=== PATIENT | female | born 1970 | race Caucasian/White ===

== ENCOUNTER 2017-07-07 21:17 | Inpatient (IN) | payer OTHER ==
[2017-07-07 21:56] VITALS: BMI 45.3
--- NOTE | 2017-07-07 22:14 | PDOC ---
Attending Attestation - Resident Resident Name: EstuardoGiulia - ED Attending Attestation I have performed the following: I have examined & evaluated the patient, The case was reviewed & discussed with the resident, I agree w/resident's findings & plan, Exceptions are as noted - HPI HPI: 07/07/17 22:08 46-year-old female with past mental history of obesity and diabetes presents with right knee and right ankle pain status post mechanical fall. Patient tripped and fell and landed on her right knee and twisted her right ankle. Complaining of bilateral malleolus and anterior knee pain. Patient unable and bili. Denies numbness or weakness. Came to the ED for further management. - Physicial Exam PE: 07/07/17 22:11 GENERAL: Awake, alert, and fully oriented, in no acute distress. HEAD: No signs of trauma EYES: PERRLA, EOMI, sclera anicteric, conjunctiva clear ENT: Auricles normal inspection, hearing grossly normal, nares patent, oropharynx clear without exudates. EXTREMITIES: Normal range of motion, no edema. No clubbing or cyanosis. No cords, erythema, or tenderness RLE: 2+ DP pulse. Sensation intact throughout. TTP Right prox tib but no stepoffs. No lateral or medial knee tenderness to palpation. Mild edema and TTP medial and lateral malleolus. No joint instability appreciated. NEUROLOGICAL: Cranial nerves II through XII grossly intact. Normal speech, normal gait SKIN: Warm, Dry, normal turgor, no rashes or lesions noted. - Medical Decision Making 07/07/17 22:14 Vital Signs Temp Pulse Resp BP Pulse Ox 98.0 F 95 H 14 156/81 98 07/07/17 21:34 07/07/17 21:34 07/07/17 21:34 07/07/17 21:34 07/07/17 21:34 Will r/o R knee, tib, ankle fracture. Neurovascularly intact. Xrays and reassess.
--- NOTE | 2017-07-08 01:19 | PDOC ---
History of Present Illness - General Chief Complaint: Pain, Acute Stated Complaint: FALL Time Seen by Provider: 07/07/17 21:29 - History of Present Illness Initial Comments: 07/08/17 01:50 Patient is a 26-year-old female with past medical history of insulin dependent diabetes who presents to the emergency department today complaining of right leg pain after falling this afternoon. Patient states that she was walking across the street when she tripped on uneven pavement and fell hitting her knee on the pavement. She states that she was unable to get up as it hurt very much. She went to urgent care for evaluation but their x-ray machine was down. They recommended coming to the emergency department for x-rays. Patient states that her pain is currently an 8 out of 10 and it hurts to bear weight. She states that she cannot walk on her own but she is requiring assistance. Denies numbness and tingling of the foot as well as weakness. Denies LOC, head trauma, neck pain, back pain, urinary/bowel incontinence. Past History - Travel Traveled outside of the country in the last 30 days: No Close contact w/someone who was outside of country & ill: No - Past Medical History Allergies/Adverse Reactions: Allergies Allergy/AdvReac Type Severity Reaction Status Date / Time amoxicillin Allergy Verified 07/07/17 21:33 Penicillins Allergy Verified 07/07/17 21:33 Home Medications: Ambulatory Orders Albuterol Sulfate Inhaler - [Ventolin Hfa Inhaler -] 1 puff IH PRN PRN 07/08/17 Alogliptin Benzoate [Alogliptin] 25 mg PO DAILY 07/08/17 Canagliflozin [Invokana] 300 mg PO DAILY 07/08/17 Dulaglutide [Trulicity] 0.75 mg SQ WEEKLY 07/08/17 Fluticasone Prop 0.05% Nasal [Flonase -] 1 - 2 spray NS DAILY 07/08/17 Glyburide 10 mg PO BID 07/08/17 Insulin Degludec [Tresiba Flextouch U-100] 100 unit SQ DAILY 07/08/17 Levothyroxine [Synthroid -] 75 mcg PO DAILY 07/08/17 Losartan Potassium 100 mg PO DAILY 07/08/17 - Psycho/Social/Smoking Cessation Hx Suicidal Ideation: No Smoking History: Never smoked Have you smoked in the past 12 months: No Information on smoking cessation initiated: No Hx Alcohol Use: No Drug/Substance Use Hx: No Review of Systems - Review of Systems Constitutional: No: Chills, Fever, Malaise, Weakness Neurological: Yes: Unsteady Gait (unable to bear weight on r leg). No: Numbness , Paresthesia, Weakness, Dizziness *Physical Exam - Vital Signs Last Vital Signs Temp Pulse Resp BP Pulse Ox 98.0 F 95 H 14 156/81 98 07/07/17 21:34 07/07/17 21:34 07/07/17 21:34 07/07/17 21:34 07/07/17 21:34 - Physical Exam Comments: 07/08/17 01:53 GENERAL: Well developed, well nourished. AAOX3. Mild distress, unable to walk d/t pain HEENT: Normocephalic, atraumatic. PERRLA, EOMI. No conjunctival pallor. Sclera are non- icteric. Moist mucous membranes. Oropharynx is clear. NECK: Supple. Full ROM. No JVD. Carotid pulses 2+ and symmetric, without bruits. No thyromegaly. No lymphadenopathy. CARDIOVASCULAR: Regular rate and rhythm. No murmurs, rubs, or gallops. Distal pulses are 2+ and symmetric. PULMONARY: No evidence of respiratory distress. Lungs clear to auscultation bilaterally. No wheezing, rales or rhonchi. ABDOMINAL: Soft. Non-tender. Non-distended. No rebound or guarding. No organomegaly. Normoactive bowel sounds. MUSCULOSKELETAL R knee is swollen medially and laterally. (-) anterior/posterior draw test. TTP of the tibial tuberosity. ROM decreased, pt refuses to flex or extend her leg d/ t pain. Ankle is also grossly swolled medially and laterally with TTP of the medial/lateral malleoulus as well as the navicular bone. ROM intact, Pain with dorsiflexion. Normal range of motion at all other joints. No bony deformities or tenderness. No CVA tenderness. EXTREMITIES: No cyanosis. No clubbing. No edema. No calf tenderness. SKIN: Warm and dry. Normal capillary refill. No rashes. No jaundice. NEUROLOGICAL: Alert, awake, appropriate. Cranial nerves 2-12 intact. No deficits to light touch and temperature in face, upper extremities and lower extremities. No motor deficits in the in face, upper extremities and lower extremities. Normoreflexic in the upper and lower extremities. Normal speech. Toes are down- going bilaterally. Gait is normal without ataxia. PSYCHIATRIC: Cooperative. Good eye contact. Appropriate mood and affect. ED Treatment Course - LABORATORY CBC & Chemistry Diagram: 07/08/17 03:45 07/08/17 03:45 - ADDITIONAL ORDERS Additional order review: Laboratory Results 07/07/17 22:49 Urine HCG, Qual Negative - RADIOLOGY Radiology Studies Ordered: Category Date Time Status ANKLE & FOOT-RIGHT* [RAD] Stat Radiology 07/07/17 21:46 Taken KNEE 2 POS-RIGHT [RAD] Stat Radiology 07/07/17 21:46 Taken LEG TIB/FIB-RIGHT [RAD] Stat Radiology 07/07/17 21:46 Taken - Medications Given in the ED: ED Medications Discontinued Medications Generic Name Dose Route Start Last Admin Trade Name Freq PRN Reason Stop Dose Admin Oxycodone/Acetaminophen 1 combo 07/07/17 21:47 07/07/17 22:55 Percocet 5/325 - PO 07/07/17 21:48 1 combo ONCE ONE Administration Medical Decision Making - Medical Decision Making 07/08/17 00:59 Patient is a 46-year-old female with past medical history of insulin-dependent diabetes who presents to the emergency department today complaining of right leg pain. Patient's pain is out of proportion to the degree of swelling. We will obtain x-rays of the right leg to rule out fracture. We will also medicate for pain. 1.x-ray of right knee, right tib-fib, right ankle/foot 2. Percocet for pain management 3.reevaluate 07/08/17 01:10 X-rays: impressions as by carleen Possible occult fracture involving the knee as suggested by hemarthrosis. Consider follow-up with CT. Osteoarthritis of the knee and foot. Nonspecific soft tissue edema involving the right ankle and calf regions. Given results of x-ray, will order CT of the lower extremity at this time. Patient stated she had used the bathroom. She was unable to walk in the emergency department or put weight on the foot due to the pain. Will order another dose of Percocet at this time. 07/08/17 02:49 CT impression: Avulsion fracture of the posterior tibial plateau. Possible PCL involvement. 07/08/17 03:[address] findings and the patient is unable to ambulate will admit to the hospital at this time. Patient's primary care doctor is Dr. Zeynep Mcfadden who does not admit to this hospital. Will consult [facility] at this time. Will put in consult for Dr. Dumas. 07/08/17 03:25 Pt. admitted to [facility]. *DC/Admit/Observation/Transfer Diagnosis at time of Disposition: Avulsion fracture, Unable to ambulate - Discharge Dispostion Condition at time of disposition: Stable Admit: Yes - Referrals Referrals: Flower Mcfadden MD [Primary Care Provider] -
[2017-07-08 03:51] LABS: BASOPHIL 0.6 % (0-2.0); EOSINOPHIL 2.3 % (0-4.5); MCH 29.8 pg (25.7-33.7); MCHC 33.5 g/dl (32.0-36.0); MEAN CELL VOLUME 88.8 fl (80-96); MEAN PLT VOLUME 8.4 fl (7.5-11.1); NEUTROPHILS 68.4 % (42.8-82.8); PLATELET COUNT 243 K/MM3 (134-434); RDW 14.1 % (11.6-15.6); WHITE BLOOD COUNT 8.2 K/mm3 (4.0-10.0)
--- NOTE | 2017-07-08 03:58 | HP ---
CHIEF COMPLAINT: PCP: HISTORY OF PRESENT ILLNESS: 46 yo F with PMhx of obesity,hypothyroidism and diabetes presents with right knee and right ankle pain status post mechanical fall. Patient tripped and fell and landed on her right knee and twisted her right ankle.No head trauma or LOC. She went to urgent care initially and did not have imaging done. Subsequently went home and was unable to bare weight. Called EMS and brought to ER. Complaining of 10/10 constant non radiating right ankle and anterior knee pain. Patient unable ambulate. Denies numbness or weakness.Denies CP, LEROY,palpitations , abd. pain, N/V. ER course was notable for: (1)XRAYs of leg an foot did not show fracture (2)Ct of LE showed avulsion fracture of the posterior tibial plateau, with possible PCL involvement. (3) Recent Travel:denies PAST MEDICAL HISTORY:obesity,hypothyroidism, endometriosis and diabetes PAST SURGICAL HISTORY: laproscopic Social History: Smoking:never Alcohol:socially Drugs: denies Family History: Father- DM, HTN, HLD, CAD Allergies amoxicillin Allergy (Verified 07/07/17 21:33) Penicillins Allergy (Verified 07/07/17 21:33) HOME MEDICATIONS: REVIEW OF SYSTEMS CONSTITUTIONAL: Absent: fever, chills, diaphoresis, generalized weakness, malaise, loss of appetite, weight change HEENT: Absent: rhinorrhea, nasal congestion, throat pain, throat swelling, difficulty swallowing, mouth swelling, ear pain, eye pain, visual changes CARDIOVASCULAR: Absent: chest pain, syncope, palpitations, irregular heart rate, lightheadedness , peripheral edema RESPIRATORY: Absent: cough, shortness of breath, dyspnea with exertion, orthopnea, wheezing, stridor, hemoptysis GASTROINTESTINAL: Absent: abdominal pain, abdominal distension, nausea, vomiting, diarrhea, constipation, melena, hematochezia GENITOURINARY: Absent: dysuria, frequency, urgency, hesitancy, hematuria, flank pain, genital pain MUSCULOSKELETAL: right knee and ankle pain Absent: myalgia, arthralgia, joint swelling, back pain, neck pain SKIN: Absent: rash, itching, pallor HEMATOLOGIC/IMMUNOLOGIC: Absent: easy bleeding, easy bruising, lymphadenopathy, frequent infections ENDOCRINE: Absent: unexplained weight gain, unexplained weight loss, heat intolerance, cold intolerance NEUROLOGIC: Absent: headache, focal weakness or paresthesias, dizziness, unsteady gait, seizure, mental status changes, bladder or bowel incontinence PSYCHIATRIC: Absent: anxiety, depression, suicidal or homicidal ideation, hallucinations. PHYSICAL EXAMINATION Vital Signs - 24 hr 07/07/17 21:34 Temperature 98.0 F Pulse Rate 95 H Respiratory 14 Rate Blood Pressure 156/81 O2 Sat by Pulse 98 Oximetry (%) GENERAL: AAOx3 , mild distress. HEAD: NC/AT. EYES: PERRLA ,EOMI, sclera anicteric, conjunctiva clear. No lid lag. EARS, NOSE, THROAT: Moist mucous membranes. NECK: thick, supple, no jvd. LUNGS: CTAB. No wheezes, and no crackles. No accessory muscle use. HEART: RRR, normal S1 and S2 , no m/g/r ABDOMEN: Soft, obese, nontender, not distended, normoactive bowel sounds, no guarding, no rebound, no masses. No hepatomegaly or splenomegaly. MUSCULOSKELETAL: No bony deformities or tenderness. No CVA tenderness. UPPER EXTREMITIES: 2+ pulses, warm, well-perfused. No cyanosis. No clubbing. No peripheral edema. LOWER EXTREMITIES: 2+ DP pulses,R knee is swollen medially and laterally. (-) anterior/posterior draw test. TTP of the tibial tuberosity. Decreased ROM 2/2 pain. warm, well-perfused. No calf tenderness. 1+ peripheral edema. Neurovascularly intact. NEUROLOGICAL: Cranial nerves II-XII intact. Normal speech. gait not observed. PSYCHIATRIC: Cooperative. Good eye contact. Appropriate mood and affect. SKIN: Warm, dry, normal turgor, no rashes or lesions noted, normal capillary refill. Laboratory Results - last 24 hr 07/07/17 22:49 Urine HCG, Qual Negative ASSESSMENT/PLAN: 46 yo F with PMhx of obesity,hypothyroidism and diabetes admitted to med-surg for further management of avulsion fracture of the posterior tibial plateau, with possible PCL involvement. Problem List - Problem (1) Avulsion fracture Assessment/Plan: * CT of lower ext shows avulsion fracture of the posterior tibial plateau, with possible PCL involvement. * Will consult Dr. Alesia root * Will admit to med-surg * NPO for now * Pain control with Roxicodone 5mg PO Q4hr * IVF with NS @100 ml/hr. (2) Diabetes type 2, controlled Assessment/Plan: * NPO for now but ADA diet once cleared by ortho * BGM ACHS * NISS ACHS (3) Hypothyroidism (acquired) Assessment/Plan: * Continue Levothyroxin. Visit type - Emergency Visit Emergency Visit: Yes Care time: The patient presented to the Emergency Department on the above date and was hospitalized for further evaluation of their emergent condition. - New Patient This patient is new to me today: Yes Date on this admission: 07/08/17 - Critical Care Critical Care patient: No
[2017-07-08] MEDS ORDERED: SODIUM CHLORIDE 1,000 ML IV SCH (04:00)
[2017-07-08 04:21] LABS: INR 1.03 (0.82-1.09); PROTHROMBIN TIME (PATIENT) 11.3 SEC (9.98-11.88)
[2017-07-08 04:24] LABS: ACTIVATED PTT 35.1 SECONDS (26.9-34.4)
[2017-07-08 04:29] LABS: ALBUMIN 2.6 g/dl (3.4-5.0); ANION GAP 9 (8-16); BILIRUBIN,TOTAL 0.3 mg/dL (0.2-1.0); CALCIUM 8.6 mg/dL (8.5-10.1); CO2 27 mmol/L (21-32); CREATININE 0.8 mg/dL (0.55-1.02); SGOT/AST 11 U/L (15-37); SGPT/ALT 27 U/L (12-78); TOT PROT 6.3 g/dl (6.4-8.2)
[2017-07-08 04:30] LABS: ALK PHOS 77 U/L (45-117)
[2017-07-08 04:31] LABS: GLUCOSE,RANDOM 347 mg/dL (74-106)
[2017-07-08] MEDS ORDERED: INSULIN REGULAR HUMAN 100 UNITS/ML *VIAL IVPUSH ONE (04:42)
--- NOTE | 2017-07-08 06:27 | PN ---
Teaching Attending Note Name of Resident: Emmett Byrd ATTENDING PHYSICIAN STATEMENT I saw and evaluated the patient. I reviewed the resident's note and discussed the case with the resident. I agree with the resident's findings and plan as documented. SUBJECTIVE: 46 year old female s/p mechanical fall and trauma to her right LE resulting in 10/10 pain and inability to ambulate. ED workup revealed avulsiono fx of the posterior tibial plataeu with possible PLC involvement . Recent Travel:denies PAST MEDICAL HISTORY: obesity hypothyroidism, endometriosis diabetes Social History: Smoking:never Alcohol:socially Drugs: denies Family History: Father- DM, HTN, HLD, CAD Allergies amoxicillin Allergy (Verified 07/07/17 21:33) Penicillins Allergy (Verified 07/07/17 21:33) OBJECTIVE: Vital Signs Temperature 98.1 F 07/08/17 05:39 Pulse Rate 84 07/08/17 05:39 Respiratory Rate 20 07/08/17 05:39 Blood Pressure 115/64 07/08/17 05:39 O2 Sat by Pulse Oximetry (%) 98 07/08/17 05:01 HEART: RRR, normal S1 and S2 , no m/g/r ABDOMEN: Soft, obese, nontender, not distended, normoactive bowel sounds, no guarding, no rebound, no masses. No hepatomegaly or splenomegaly. MUSCULOSKELETAL: No bony deformities or tenderness. No CVA tenderness. UPPER EXTREMITIES: 2+ pulses, warm, well-perfused. No cyanosis. No clubbing. No peripheral edema. LOWER EXTREMITIES: 2+ DP pulses,R knee is swollen medially and laterally. Decreased ROM 2/2 pain. warm, well-perfused. No calf tenderness. 1+ peripheral edema. Neurovascularly intact CBC, BMP 07/08/17 03:45 07/08/17 03:45 ASSESSMENT AND PLAN: 1. Posterior tibial plateau fracture of RLE - acute, post traumatic - NPO - Ortho eval / possible surgical interventio - pain control -IVF 2. Uncontrolled DM - non compliant with diet - hole oral antihyperglycemics - insulin basal and sliding scale 3. DVT PPX - heparin SC
[2017-07-08] MEDS: HEPARIN NA (PORCINE) 5,000 UNITS/ML 1ML VIAL SQ SCH ×3 (06:34→21:09)
[2017-07-08 07:20] LABS: MAGNESIUM 1.9 mg/dL (1.8-2.4); PHOSPHOROUS 4.1 mg/dL (2.5-4.9)
[2017-07-08] MEDS: LEVOTHYROXINE NA 75 MCG TABLET (FP) PO SCH (07:34)
[2017-07-08] MEDS: LOSARTAN POTASSIUM 50 MG TABLET (FP) PO SCH (09:34)
[2017-07-08] MEDS: oxyCODONE HCL 5 MG TABLET PO PRN (11:54)
--- NOTE | 2017-07-08 15:15 | PN ---
Physical Exam: SUBJECTIVE: Patient seen and examined. Pain in right leg is controlled. OBJECTIVE: Vital Signs Period Temp Pulse Resp BP Sys/Mackenzie Pulse Ox Last 24 Hr 98.1 F-98.8 F 83-88 18-20 115-141/64-89 98 GENERAL: The patient is awake, alert, and fully oriented, in no acute distress. LUNGS: Breath sounds equal, clear to auscultation bilaterally, no wheezes, no crackles, no accessory muscle use. HEART: Regular rate and rhythm, S1, S2 without murmur, rub or gallop. ABDOMEN: Obese, soft, nontender, nondistended, normoactive bowel sounds, no guarding, no rebound, no hepatosplenomegaly, no masses. EXTREMITIES: 2+ pulses, warm, well-perfused, no edema. Abrasions right knee. Laboratory Results - last 24 hr 07/08/17 07/08/17 05:58 07:00 POC Glucometer 182 Phosphorus 4.1 Magnesium 1.9 Active Medications Generic Name Dose Route Start Last Admin Trade Name Freq PRN Reason Stop Dose Admin Heparin Sodium (Porcine) 5,000 unit 07/08/17 06:00 07/08/17 13:43 Heparin - SQ 5,000 unit TID RAJIV Administration Sodium Chloride 1,000 mls @ 83 mls/hr 07/08/17 04:00 07/08/17 04:11 Normal Saline - IV 83 mls/hr ASDIR RAJIV Administration Levothyroxine Sodium 75 mcg 07/08/17 07:00 07/08/17 07:34 Synthroid - PO 75 mcg DAILY@0700 RAJIV Administration Losartan Potassium 100 mg 07/08/17 10:00 07/08/17 09:34 Cozaar - PO 100 mg DAILY RAJIV Administration Oxycodone HCl 5 mg 07/08/17 03:46 07/08/17 11:54 Roxicodone - PO 5 mg Q4H PRN Administration PAIN ASSESSMENT/PLAN: This is a 46 year old woman with a history of obesity, hypothyroidism, type 2 DM who presented to the ER with right knee and right ankle pain after a fall. 1. Right posterior tibial plateau fracture - Continue oxycodone as needed for pain - Awaiting orthopedic surgery evaluation 2. Type 2 diabetes mellitus - Fingersticks with Novolog sliding scale 3. Hypothyroidism - Continue Synthroid 4. Hypertension - Continue Cozaar Visit type - Emergency Visit Emergency Visit: Yes ED Registration Date: 07/08/17 Care time: The patient presented to the Emergency Department on the above date and was hospitalized for further evaluation of their emergent condition. - New Patient This patient is new to me today: Yes Date on this admission: 07/08/17 - Critical Care Critical Care patient: No - Discharge Referral Referred to [facility] Med [facility].: No
[2017-07-08] MEDS: INSULIN SLIDING SCALE (NOVOLOG) 1 VIAL SQ SCH ×2 (17:21→21:10)
[2017-07-08] MEDS ORDERED: INSULIN (NOVOLOG) ASPART 100 UNITS/ML 10ML VIAL ONE (20:39)
[2017-07-09] MEDS: oxyCODONE HCL 5 MG TABLET PO PRN ×2 (06:09→12:54)
[2017-07-09] MEDS: INSULIN SLIDING SCALE (NOVOLOG) 1 VIAL SQ SCH ×3 (06:10→17:35)
[2017-07-09] MEDS: HEPARIN NA (PORCINE) 5,000 UNITS/ML 1ML VIAL SQ SCH ×2 (06:10→14:17)
[2017-07-09] MEDS: LEVOTHYROXINE NA 75 MCG TABLET (FP) PO SCH (06:11)
--- NOTE | 2017-07-09 08:55 | CON.ORTH ---
Consult Reason for Consultation:: right knee, right ankle pain - Alcohol/Substance Use Hx Alcohol Use: No - Smoking History Smoking history: Never smoked Have you smoked in the past 12 months: No Home Medications - Allergies Allergies/Adverse Reactions: Allergies Allergy/AdvReac Type Severity Reaction Status Date / Time amoxicillin Allergy Verified 07/07/17 21:33 Penicillins Allergy Verified 07/07/17 21:33 - Home Medications Home Medications: Ambulatory Orders Albuterol Sulfate Inhaler - [Ventolin Hfa Inhaler -] 1 puff IH PRN PRN 07/08/17 Alogliptin Benzoate [Alogliptin] 25 mg PO DAILY 07/08/17 Canagliflozin [Invokana] 300 mg PO DAILY 07/08/17 Dulaglutide [Trulicity] 0.75 mg SQ WEEKLY 07/08/17 Fluticasone Prop 0.05% Nasal [Flonase -] 1 - 2 spray NS DAILY 07/08/17 Glyburide 10 mg PO BID 07/08/17 Insulin Degludec [Tresiba Flextouch U-100] 100 unit SQ DAILY 07/08/17 Levothyroxine [Synthroid -] 75 mcg PO DAILY 07/08/17 Losartan Potassium 100 mg PO DAILY 07/08/17 Physical Exam for Ortho Vital Signs: Vital Signs Temperature 98.9 F 07/09/17 05:01 Pulse Rate 85 07/09/17 05:01 Respiratory Rate 20 07/09/17 05:01 Blood Pressure 131/72 07/09/17 05:01 O2 Sat by Pulse Oximetry (%) 96 07/08/17 21:00 Labs: INR, PTT INR 1.03 (0.82-1.09) 07/08/17 03:45 - Lower Extremity Knee: Yes: Right, Abrasion, Limited ROM, Pain, Swelling, Tenderness, Other ( able to SLR, nvi) Ankle: Yes: Right, Pain, Swelling, Tenderness, Other (good rom, nvi) Imaging - Results X-ray: Report Reviewed, Image Reviewed Cat Scan: Report Reviewed, Image Reviewed Assessment/Plan 46 yo F with PMhx of obesity,hypothyroidism and diabetes presents with right knee and right ankle pain status post mechanical fall. Patient tripped and fell and landed on her right knee and twisted her right ankle.No head trauma or LOC. She went to urgent care initially and did not have imaging done. Subsequently went home and was unable to bare weight. Called EMS and brought to ER. Complaining of 10/10 constant non radiating right ankle and anterior knee pain. Patient has been unable ambulate. Denies numbness or weakness. States right knee is worse than ankle. a/p 1) Right posterior tibial plateau fx- nondisplaced 2) right ankle sprain knee immobilizer for right knee- only for weight bearing, may remove and perform ROM exercises in bed PWB with knee immobilizer and crutches/walker PT eval ice, elevate will follow d/w Dr. Dumas
[2017-07-09] MEDS: LOSARTAN POTASSIUM 50 MG TABLET (FP) PO SCH (09:58)
[2017-07-09] MEDS ORDERED: INSULIN (NOVOLOG) ASPART 100 UNITS/ML 10ML VIAL ONE (12:10)
[2017-07-09 13:58] VITALS: BP 122/68; PULSE 93; TEMP 98.1
--- NOTE | 2017-07-09 16:00 | DS ---
Physical Exam: SUBJECTIVE: Patient seen and examined. Offers no new complaints today. OBJECTIVE: Vital Signs Period Temp Pulse Resp BP Sys/Mackenzie Pulse Ox Last 24 Hr 97.8 F-98.9 F 85-93 19-20 112-131/66-76 96 PHYSICAL EXAM GENERAL: The patient is awake, alert, and fully oriented, in no acute distress. HEAD: Normal with no signs of trauma. EYES: PERRL, extraocular movements intact, sclera anicteric, conjunctiva clear. ENT: Ears normal, nares patent, oropharynx clear without exudates, moist mucous membranes. NECK: Trachea midline, full range of motion, supple. LUNGS: Breath sounds equal, clear to auscultation bilaterally, no wheezes, no crackles, no accessory muscle use. HEART: Regular rate and rhythm, S1, S2 without murmur, rub or gallop. ABDOMEN: Soft, nontender, nondistended, normoactive bowel sounds, no guarding, no rebound, no hepatosplenomegaly, no masses. EXTREMITIES: 2+ pulses, warm, well-perfused, no edema. Tenderness to palpation and Restricted ROM on RLE (1/5). PSYCH: Normal mood, normal affect. SKIN: Warm, dry, normal turgor, no rashes or lesions noted. LABS Laboratory Results - last 24 hr 07/08/17 07/08/17 07/09/17 17:00 21:07 06:06 POC Glucometer 293 295 307 07/09/17 11:43 POC Glucometer 319 HOSPITAL COURSE: Date of Admission:07/08/17 Date of Discharge: 07/09/17 46-year-old female with past mental history of obesity and diabetes presented to the ED with right knee and right ankle pain status post mechanical fall and was found to have a Right posterior tibial fracture and a right ankle sprain. Patient was placed on a knee immobilizer which may be removed while performing ROM exercises. Follow-up with Dr. Dumas is recommended in 1-2 weeks for further management. Patient was prescribed oxycodone 5mg PRN for 10 days. Hospital course was complicated by hyperglycemia and Hypertension which were controlled with insulin and Cozaar throughout hospital course. Patient was sent home with visiting nurse service and home physical therapy coordinated. Minutes to complete discharge: 45 Discharge Summary Reason For Visit: UNABLE TO ABMULACE, EVALUEATE FRAGURE Current Active Problems Avulsion fracture (Acute) Diabetes type 2, controlled (Acute) Hypothyroidism (acquired) (Acute) Unable to ambulate (Acute) Condition: Stable - Instructions Diet, Activity, Other Instructions: Follow up with your primary care doctor- Dr. Mcfadden. Imaging revealed fracture of the right tibia. You also have a right ankle sprain. You must use knee immobilizer for your right leg and you may remove it while doing range of motion exercises. While you walk or ambulate, you must use a walker or crutches and must keep knee immobilizer on while you walk or ambulate. You cannot bear weight on your right leg without an assistive device and your knee immobilizer. You will follow up with Dr. Dumas an orthopedic surgeon in 1 week for further management of your fracture and ankle sprain. Oxycodone has been prescribed to your pharmacy for pain control. You may take 1 pill every 6 hours if needed for pain control. No changes have been made to your home medications. If you develop any fevers, lower leg swelling and redness, short of breath and chest pain, come back to the emergency room. Referrals: Fadi Dumas MD [Staff Physician] - 1 Week Flower Mcfadden MD [Primary Care Provider] - Disposition: [facility]NS/HOME HEALTH CARE - Home Medications Comprehensive Discharge Medication List: Ambulatory Orders Albuterol Sulfate Inhaler - [Ventolin Hfa Inhaler -] 1 puff IH PRN PRN 07/08/17 Alogliptin Benzoate [Alogliptin] 25 mg PO DAILY 07/08/17 Canagliflozin [Invokana] 300 mg PO DAILY 07/08/17 Dulaglutide [Trulicity] 0.75 mg SQ WEEKLY 07/08/17 Fluticasone Prop 0.05% Nasal [Flonase -] 1 - 2 spray NS DAILY 07/08/17 Glyburide 10 mg PO BID 07/08/17 Insulin Degludec [Tresiba Flextouch U-100] 100 unit SQ DAILY 07/08/17 Levothyroxine [Synthroid -] 75 mcg PO DAILY 07/08/17 Losartan Potassium 100 mg PO DAILY 07/08/17 Walker [Ultra-Light Rollator] 1 each ONCE #1 each 07/09/17 This patient is new to me today: Yes Date on this admission: 07/09/17 Emergency Visit: Yes ED Registration Date: 07/08/17 Care time: The patient presented to the Emergency Department on the above date and was hospitalized for further evaluation of their emergent condition. Critical Care patient: No - Discharge Referral Referred to [facility] No
--- NOTE | 2017-07-09 18:13 | PN ---
Teaching Attending Note Name of Resident: Pia Gonzalez ATTENDING PHYSICIAN STATEMENT I saw and evaluated the patient. I reviewed the resident's note and discussed the case with the resident. I agree with the resident's findings and plan as documented. SUBJECTIVE: no fever or chills. has pain in R knee. OBJECTIVE: NAD CV : RRR Lungs : CTAB Ext : no edema on L leg. R leg in immobilizer. DP 2+ B/l . has nl sensation to light touch in both feet and nl range of motion in ankles ASSESSMENT AND PLAN: 46 year old woman with a history of obesity, hypothyroidism, type 2 DM who presented to the ER with right knee and right ankle pain after a fall. She was found to have R tibial Plataue Fx 1. Right posterior tibial plateau fracture: s/p immobilizer , cont oxy and f/u with ortho. no neuro vascular compromize. 2. Meds confirmed: not on insulin at home. resume all home meds 3. Hypothyroidism - Continue Synthroid 4. Hypertension - Continue Cozaar dispo : HOme with VNS
== END 2017-07-09 17:49 | disposition home health service (06) | DRG 563 ==
LOC: JER 21:17 → JERBED 07-08 04:15 → J5S 07-08 05:35
PROVIDERS: ADMIT Internal Medicine; ATTEND Internal Medicine
DX: S82.144A Nondisplaced bicondylar fracture of right tibia, initial encounter for closed fracture (principal); Z68.42 Body mass index [BMI] 45.0-49.9, adult; W19.XXXA Unspecified fall, initial encounter; Y93.9 Activity, unspecified; Y92.89 Other specified places as the place of occurrence of the external cause; Y99.9 Unspecified external cause status; E03.9 Hypothyroidism, unspecified; E11.9 Type 2 diabetes mellitus without complications; E66.9 Obesity, unspecified; I10 Essential (primary) hypertension
CPT/HCPCS: 36415; 73560-TC-RT; 73590-TC-RT; 73610-TC-RT; 73630-TC-RT; 73700-TC-RT; 80053; 83735; 84100; 84703; 85025; 85610; 85730; 86850; 86900; 86901; 97116-GP; 97161-GP; 99285-25; J1644